=== PATIENT | female | born 2000 | race African-American/Black ===

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

== ENCOUNTER 2022-05-18 11:18 | Emergency (ER) | payer OTHER ==
[~2022-05-18] VITALS: Ht 160 cm; Wt 81.2 kg
[~2022-05-18 11:18] MED LIST changes: +FERROUS SULF325 M3 PO
[2022-05-18 11:25] VITALS: BP 148/93
[2022-05-18 11:30] VITALS: BP 146/86
[2022-05-18 11:45] VITALS: BP 151/102
[2022-05-18] MEDS ORDERED: BACTRIM DS1 TAB PO (11:50)
[2022-05-18 12:00] VITALS: BP 134/83
== END 2022-05-18 12:06 | disposition home or self-care (01) ==
LOC: ED 11:18
DX: L02.416 Cutaneous abscess of left lower limb (principal); T24.022A Burn of unspecified degree of left knee, initial encounter; R03.0 Elevated blood-pressure reading, without diagnosis of hypertension; X58.XXXA Exposure to other specified factors, initial encounter

== ENCOUNTER 2022-09-30 18:53 | Emergency (ER) | payer OTHER ==
[2022-09-30] VITALS (12 sets, daily range): BP systolic 127–154; BP diastolic 75–107
[~2022-09-30] VITALS: Ht 160 cm; Wt 79.4 kg
[~2022-09-30 18:53] MED LIST changes: +BACTRIM DS1 TAB PO
[2022-09-30 19:33] LABS: BASO% 0.7 % (0-3); EOS% 2.9 % (0-8); HEMATOCRIT 33.2 % (37.0-47.0); IMMATURE GRANULOCYTES 0.1 % (0.0-5.0); LYMPH% 40.4 % (15-41); MEAN CELL VOLUME 60.7 fL CALC (80.0-100.0); MEAN CORPUSCULAR HGB 16.5 pG CALC (26.0-32.0); MEAN CORPUSCULAR HGB CONC 27.1 g/dL CAL (32.0-36.0); MONO% 10.9 % (2-13); NEUT# 3.42 thou/uL (2.00-7.15); RED BLOOD COUNT 5.47 mill/uL (4.20-5.60); RED CELL DISTRI WIDTH 22.9 % (11.5-15.5)
[2022-09-30 19:42] LABS: ALBUMIN 4.4 g/dL (3.2-5.0); ALKALINE PHOSPHATASE 72 u/l (38-126); BILIRUBIN, TOTAL 0.4 mg/dL (0.02-1.3); BUN 8 mg/dL (7-17); BUN/CREATININE RATIO 11 (12-20 (CALC)); CHLORIDE 105 mmol/l (95-108); CREATININE 0.8 mg/dL (0.5-1.0); GFR FOR AFR.AMER. > 60 ML/MIN (>=60 (CALC)); GFR OTHER RACES > 60 ML/MIN (>=60 (CALC)); POTASSIUM 3.6 mmol/l (3.5-5.1); SGOT/AST 28 u/l (14-36); SODIUM 139 mmol/l (137-146); TOTAL PROTEIN 8.1 g/dL (6.3-8.2)
[2022-09-30 19:49] LABS: ANION GAP 12 (6-22 (CALC)); CARBON DIOXIDE 26 mmol/l (22-30)
[2022-09-30] MEDS ORDERED: NAPROXEN375 MG PO (20:54)
== END 2022-09-30 21:09 | disposition home or self-care (01) ==
LOC: ED 18:53
PROVIDERS: Family Medicine
DX: R07.89 Other chest pain (principal)

== ENCOUNTER 2022-11-09 16:19 | Emergency (ER) | payer OTHER ==
[~2022-11-09] VITALS: Ht 160 cm; Wt 80.0 kg
[~2022-11-09 16:19] MED LIST changes: +NAPROXEN375 MG PO
[2022-11-09 17:23] VITALS: BP 161/80
[2022-11-09] MEDS ORDERED: NAPROXEN500 MG PO (18:01)
[2022-11-09] MEDS ORDERED: PENICILLN VK500 MG PO (18:01)
[2022-11-09 18:08] VITALS: BP 150/88
== END 2022-11-09 18:08 | disposition home or self-care (01) ==
LOC: ED 16:19
DX: K04.7 Periapical abscess without sinus (principal); K02.9 Dental caries, unspecified

== ENCOUNTER 2022-11-10 02:19 | Emergency (ER) | payer OTHER ==
[~2022-11-10] VITALS: Ht 160 cm; Wt 86.0 kg
[~2022-11-10 02:19] MED LIST changes: +NAPROXEN500 MG PO; +PENICILLN VK500 MG PO
[2022-11-10 02:31] VITALS: BP 118/68
== END 2022-11-10 03:00 | disposition home or self-care (01) ==
LOC: ED 02:19
DX: K04.7 Periapical abscess without sinus (principal)
CPT/HCPCS: J0561

== ENCOUNTER 2023-03-08 23:28 | Emergency (ER) | payer OTHER ==
[~2023-03-08] VITALS: Ht 160 cm; Wt 77.6 kg
[2023-03-08] MEDS ORDERED: AMOXICILLIN500 MG PO (23:45)
[2023-03-08] MEDS ORDERED: NAPROXEN375 MG PO (23:45)
[2023-03-08 23:58] VITALS: BP 159/96
== END 2023-03-09 00:01 | disposition home or self-care (01) ==
LOC: ED 23:28
DX: K04.7 Periapical abscess without sinus (principal)

== ENCOUNTER 2023-03-09 04:23 | Emergency (ER) | payer OTHER ==
[~2023-03-09] VITALS: Ht 160 cm; Wt 72.6 kg
[2023-03-09 04:56] VITALS: BP 131/74
== END 2023-03-09 04:56 | disposition home or self-care (01) ==
LOC: ED 04:23
DX: K04.7 Periapical abscess without sinus (principal)
CPT/HCPCS: J0561

== ENCOUNTER 2023-04-01 09:48 | Emergency (ER) | payer OTHER ==
[~2023-04-01] VITALS: Ht 160 cm; Wt 77.0 kg
[2023-04-01 10:09] VITALS: BP 133/73
[2023-04-01 10:16] VITALS: BP 121/67
[2023-04-01 10:30] VITALS: BP 125/70
[2023-04-01 10:45] VITALS: BP 113/65
[2023-04-01 11:00] VITALS: BP 125/64
[2023-04-01 11:33] VITALS: BP 125/64
== END 2023-04-01 12:28 | disposition home or self-care (01) ==
LOC: ED 09:48
DX: F15.93 Other stimulant use, unspecified with withdrawal (principal); R51.9 Headache, unspecified

== ENCOUNTER 2024-04-08 19:52 | Emergency (ER) | payer OTHER ==
[~2024-04-08] VITALS: Ht 160 cm; Wt 93.0 kg
[2024-04-08 20:30] VITALS: BP 133/81
== END 2024-04-08 20:40 | disposition home or self-care (01) | DRG 605 ==
LOC: ED 19:52
DX: S60.221A Contusion of right hand, initial encounter (principal); F17.200 Nicotine dependence, unspecified, uncomplicated; W22.09XA Striking against other stationary object, initial encounter; Y92.511 Restaurant or cafe as the place of occurrence of the external cause; Y99.0 Civilian activity done for income or pay

== ENCOUNTER 2024-04-14 10:07 | Emergency (ER) | payer SELFPAY ==
[~2024-04-14] VITALS: Ht 160 cm; Wt 93.6 kg
[2024-04-14 12:18] VITALS: BP 162/77
[2024-04-14] MEDS ORDERED: BENZONATATE200 MG PO (13:35)
[2024-04-14] MEDS ORDERED: OSELTAMIVIR PHOSPHATE 75 MG/TAB CAP PO ONE (13:35)
[2024-04-14] MEDS ORDERED: TAM75CAP PO (13:35)
[2024-04-14] MEDS ORDERED: MEDDOSEPAK PO (13:35)
[2024-04-14] MEDS ORDERED: IPRATROPIUM-Albuterol 0.5MG-2.5MG/3 ML NEB ONE (13:35)
[2024-04-14] MEDS ORDERED: ALBUTEROL SULFATE 8 GM INH INHW/SPAC ONE (13:35)
[2024-04-14] MEDS ORDERED: predniSONE 20 MG/TAB PO ONE (13:35)
== END 2024-04-14 14:13 | disposition home or self-care (01) | DRG 195 ==
LOC: ED 10:07
DX: J10.1 Influenza due to other identified influenza virus with other respiratory manifestations (principal); Z72.0 Tobacco use; Z20.822 Contact with and (suspected) exposure to COVID-19